=== PATIENT | female | born 1965 | race American Indian/Alaskan Native ===

== ENCOUNTER 2020-06-24 16:51 | Emergency (ER) | payer MEDICARE, MEDICAID, SELFPAY ==
[2020-06-24] VITALS (27 sets, daily range): BP systolic 82–125; BP diastolic 48–58; PULSE 77–97; RESP 16–33; TEMP 37.4; O2SAT 92–95
--- NOTE | 2020-06-24 16:58 | DI.RAD.S_ITS ---
PROCEDURE: XR CHEST 1V INDICATIONS: chest pain TECHNIQUE: One view of the chest was acquired. COMPARISON: None. FINDINGS: Surgical changes and devices: An AICD is seen. Lungs and pleura: Generalized interstitial prominence is seen. No pneumothorax or large pleural effusion can be seen. Mediastinum: Mediastinal contours appear normal. Heart size is at the upper limits of normal. Bones and chest wall: No suspicious bony lesions. Age-appropriate bony degenerative changes are seen. Overlying soft tissues appear unremarkable. IMPRESSION: Interstitial prominence is seen throughout. The interstitial prominence is nonspecific, yet may be related to pulmonary edema. AICD seen. Dictated by: Terry Valdez M.D. on 06/24/2020 at 16:57 Approved by: Terry Valdez M.D. on 06/24/2020 at 16:57
[2020-06-24 17:21] LABS: Add Manual Diff / Slide Review NO; Basophils Absolute Auto 100 /uL (0-100); Basophils Percent Auto 1.4 % (0-2); Eosinophils Absolute Auto 1300 /uL (0-450); Eosinophils Percent Auto 14.6 % (2-4); Hematocrit 39.3 % (36-46); Hemoglobin 13.2 g/dL (12.0-16.0); Lymphocytes Absolute Auto 1600 /uL (1100-4500); Lymphocytes Percent Auto 19.2 % (25-40); Mean Corpuscular HGB Conc 33.5 % (30-36); Mean Corpuscular Hemoglobin 28.8 PG (26-34); Monocytes Absolute Auto 800 /uL (0-900); Neutrophils Absolute Auto 4800 /uL (1500-7000); Neutrophils Percent Auto 55.8 % (50-75); Platelet Count 323 X10^3/uL (150-400); Red Blood Cell Count 4.57 X10^6/uL (4.0-5.2); Red Cell Distribution Width 18.2 % (11.6-14.8); White Blood Cell Count 8.6 X10^3/uL (4.5-11.0)
[2020-06-24 17:36] LABS: Alanine Aminotransferase 20 IU/L (<35); Albumin 4.3 g/dL (3.5-5.0); Albumin Globulin Ratio 1.3 (1.0-2.8); Alkaline Phosphatase 109 U/L (38-126); Aspartate Aminotransferase 36 IU/L (14-36); BUN Creatinine Ratio 17.9 (6-22); Blood Urea Nitrogen 15 mg/dL (7-17); Calcium 8.9 mg/dL (8.4-10.2); Carbon Dioxide 32 mmol/L (22-32); Chloride 97 mmol/L (98-107); Creatine Kinase 60 U/L (30-135); Estimated Glomerular Filt Rate > 60.0 mL/min (>60); Globulin 3.4 g/dL (1.7-4.1); Glucose 119 mg/dL (70-100); HEMOLYSIS < 15 (0-50); Lipase 234 U/L (23-300); Magnesium 2.1 mg/dL (1.6-2.3); Sodium 137 mmol/L (137-145); Total Protein 7.7 g/dL (6.3-8.2)
[2020-06-24 17:46] LABS: Troponin I < 0.012 ng/mL (0.01-0.034)
[2020-06-24 17:57] LABS: Ethanol (ETOH) < 10 mg/dL
[2020-06-24 17:58] LABS: Prothrombin Time 11.3 SECONDS (10.1-12.7)
[2020-06-24 18:00] LABS: PTT Partial Thromboplastin Tim 33 SECONDS (26.4-36.2)
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
--- NOTE | 2020-06-24 19:32 | PC.NURSE ---
Report received, care assumed. Pt drowsy, arousable, oriented x 4. C/O R hand pain, hematoma noted to R forehead. JOSH. Wheezing, Dr Armenta notified, order received for RT eval and treat. Pt now to CT head.
[2020-06-24] MEDS: ALBUTEROL/IPRATROPIUM 3 ML AMPUL INH (19:49)
--- NOTE | 2020-06-24 20:18 | PC.NURSE ---
Petr here for pacemaker interrogation, reports v-fib arrest with defib, Dr Armenta made aware.
[2020-06-24 20:53] LABS: COVID19 -Nasal RAPID Negative (Negative)
--- NOTE | 2020-06-24 21:49 | PC.NURSE ---
Pt given snack with ok from Dr Armenta. Daughter at bedside, both updated to plan of care: board in ED overnight. Housekeeping called for hospital bed.
--- NOTE | 2020-06-24 23:01 | PC.NURSE ---
Pt moved to hospital bed in room 11, daughter at bedside assisting pt to bathe. Pt wheezing-- RT paged for breathing treatment.
[2020-06-24] MEDS: ALBUTEROL 2.5 MG/3 ML NEB (ADULT) INH (23:07)
[2020-06-25] VITALS (21 sets, daily range): BP systolic 89–117; BP diastolic 51–69; PULSE 83–114; RESP 14–33; O2SAT 92–98
[2020-06-25] MEDS: ALBUTEROL/IPRATROPIUM 3 ML AMPUL INH ×2 (06:35→11:12)
[2020-06-25 11:15] LABS: UR Morphine/Opiate cutoff 300 Negative (Negative); Ur Creatinine Normal (Normal); Ur Specific Gravity Normal (Normal); Urine Amphetamines Negative (Negative); Urine Barbiturates Negative (Negative); Urine Benzodiazepines Negative (Negative); Urine Cocaine Negative (Negative); Urine MDMA Negative (Negative); Urine Methadone Negative (Negative); Urine Methamphetamines Positive (Negative); Urine Oxycodone Negative (Negative); Urine Phencyclidine Negative (Negative); Urine Tetrahydrocannabinol Negative (Negative); Urine Tricyclic Antidepressant Negative (Negative); Urine pH Normal (Normal)
[2020-06-25] MEDS: AMIODARONE 200 MG TABLET 400 MG PO (11:50)
== END 2020-06-25 12:31 | disposition home or self-care (01) ==
PROVIDERS: Emergency Medicine; Emergency Provider Emergency Medicine
DX: I49.01 Ventricular fibrillation (principal); S00.03XA Contusion of scalp, initial encounter; I50.9 Heart failure, unspecified; R07.9 Chest pain, unspecified; R55 Syncope and collapse; V89.2XXA Person injured in unspecified motor-vehicle accident, traffic, initial encounter
CPT/HCPCS: 36415; 70450; 71045; 73130; 80053; 80305; 80320; 82550; 83690; 83735; 84484; 85025; 85610; 85730; 87635; 93005; 94640; 99285; J7613